=== PATIENT | male | born 1990 | race American Indian/Alaskan Native ===

== ENCOUNTER 2024-12-18 10:19 | Emergency (ER) | payer SELFPAY ==
[~2024-12-18] VITALS: Ht 172.7 cm; Wt 98.2 kg
[2024-12-18] MEDS ORDERED: IBUPROFEN 600 MG TAB PO ONE (12:00)
[2024-12-18] MEDS ORDERED: HYDROCODON-ACE1 EA10 PO (12:18)
[2024-12-18 12:28] VITALS: BP 139/99
== END 2024-12-18 12:30 | disposition home or self-care (01) ==
LOC: ED 10:19
DX: S90.31XA Contusion of right foot, initial encounter (principal); W10.9XXA Fall (on) (from) unspecified stairs and steps, initial encounter
CPT/HCPCS: 73630; 99283; A9270

== ENCOUNTER 2024-12-25 11:16 | Emergency (ER) | payer SELFPAY ==
[~2024-12-25] VITALS: Ht 172.7 cm; Wt 98.3 kg
[~2024-12-25 11:16] MED LIST: HYDROCODON-ACE1 EA10 PO
--- OUTSIDE RECORDS SUMMARY | 2024-12-25 11:22 | XMS ---
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 Ludmila has no Care Guidelines for this patient. Robin VIS[facility] COUNT (12 MO.) [facility] T[facility] 2 NOTE: Visits indicate total known visits. ED/[facility] VISIT TRACKING (12 MO.) 12/25/2024 11:16 [facility] [place] TYPE: Emergency COMPLAINT: - FOOT INJURY 12/18/2024 10:20 [facility] [place] TYPE: Emergency COMPLAINT: - RT FOOT INJURY DIAGNOSES: - Contusion of right foot, initial encounter - Fall (on) (from) unspecified stairs and steps, initial encounter - Pain in right ankle and joints of right foot INPATIENT VISIT TRACKING (12 MO.) No inpatient visits to display in this time frame [email or web address]
[2024-12-25 20:33] VITALS: BP 130/78
== END 2024-12-25 20:33 | disposition home or self-care (01) ==
LOC: ED 11:16
DX: S90.31XA Contusion of right foot, initial encounter (principal); W18.40XA Slipping, tripping and stumbling without falling, unspecified, initial encounter
CPT/HCPCS: 99283